=== PATIENT | male | born 1970 | race Caucasian/White ===

== ENCOUNTER → 2024-03-12 | Outpatient (CLI) | payer MEDICAID, SELFPAY ==
--- NOTE | 2024-03-12 16:15 | XR_ITS ---
Examination: MRI lumbar spine without contrast Date and time of exam: March 12, 2024 1708 hours INDICATIONS: Lifting injury 2010 with persistent low back pain numbness in the legs Technique: Multiple MRI axial and sagittal sections lumbar spine. Sagittal T2-weighted images, TR 3500, TE 118 T1 weighted transverse sections, TR 688 T8.5, T2-weighted sagittal sections T1 weighted sagittal sections TR 621, TE 30 T2 axial sections, TR 4, 190, TE 84. Findings: Adequate alignment lumbar vertebral bodies on the lateral view No lumbar fracture Diffuse lumbar disc desiccation Moderate disc narrowing posteriorly L5-S1 No spondylolisthesis L5-S1 2 mm central lumbar disc bulge contiguous with the S1 nerve roots L4-L5 no disc protrusion L3-L4 no disc protrusion L2-L3 no disc protrusion L1-2 no disc protrusion IMPRESSION: L5-S1 2 mm central lumbar disc bulge contiguous with the right and left S1 nerve roots
== END | disposition home or self-care (01) ==
LOC: SMRI 03-15 07:52
PROVIDERS: PCP Pediatrics; Referring Provider Orthopaedic Surgery; Visit Provider Orthopaedic Surgery
DX: M51.370 Other intervertebral disc degeneration, lumbosacral region with discogenic back pain only (principal)
CPT/HCPCS: 72148

== ENCOUNTER 2024-03-18 16:30 | Outpatient (RCR) | payer MEDICAID, SELFPAY ==
--- NOTE | 2024-02-23 15:10 | PT.OIERPT ---
PT OP Initial Eval Patient Information Outpatient Physical Therapy Treatment Date: 02/23/24 Visit Reasons: Lumbar region Medical Diagnosis: M51.36 Treatment Dx #1: LBP with radiculopathy Start of Care: 02/23/24 Date of Onset: 7 yrs ago Smoking Status Smoking Status: Never smoker Initial Assessment Subjective: Pt is 53 yr old syrian speaking male who reports long Hx of LBP and feet that go numb. 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 PMH: none reported Imaging: Xray in EMR Diffuse [id number] lumbar degenerative disc disease, most prominent L1-L2? Pt goal: less LBP Objective: Trunk ArOM: ? B SB 50% of normal with pain ? Extension: 20% with pain around L4-5, L5-S1 ? Flexion: 10 from floor with LBP ? B rotation: 60% with pain to the L ? TTP: moderate paraspinals L5-S1 ? Neuro: R SLR: positive Assessment: ? Pt presents with trunk flexion sensitivity and overlying myofascial pain ? and TTP around L5-S1 consistent with ? lower lumbar disc bulge(s) with radiculopathy. Pt requires skilled therapy in order to decrease ? pain and improve sitting/standing tolerance and has fair rehab potential. Eval ?followed by HEP printout. 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 Ind with HEP ? 2. Decreased lower paraspinal TTP from mod to min 3. Improved work tolerance to at least 90 minutes with <=3/10 LBP and no ?increase in LE ssx ? Treatment Plan ? 1. Manual therapy ? 2. Therex ? 3. Modalities as indicated, moist heat, ice, estim, mechanical traction Frequency and Duration: 1-2x a week for 8 Rx sessions plus evaluation Certification Dates: 02/23/24 to 05/21/24 Procedure Charges OP PT Eval Mod Complex 30 minutes: Yes
--- NOTE | 2024-03-02 17:35 | PTNOTE_ITS ---
PT Outpatient Daily Note OP Daily Note Outpatient Physical Therapy Treatment Date: 03/02/24 Visit Reasons: Lumbar region Subjective: The HEP exercises of prone lumbar extension have helped reduce LBP Objective: See F/S for therex MT: [facility] L/S x7' Assessment: Low tissue irritability with therex Plan: Continue per POC Length of Time (minutes) of Treatment: 30 Minutes Procedure Charges Therapeutic Exercise 30 minutes: Yes
--- NOTE | 2024-03-10 17:33 | PT.ODAYNRPT ---
PT Outpatient Daily Note OP Daily Note Outpatient Physical Therapy Treatment Date: 03/10/24 Visit Reasons: Lumbar region Subjective: The HEP exercises of prone lumbar extension have helped reduce LBP Objective: See F/S for therex Mechanical traction L/S x7' Assessment: Low tissue irritability with therex and prone extension Plan: Continue per POC Length of Time (minutes) of Treatment: 30 Minutes Procedure Charges Therapeutic Exercise 30 minutes: Yes
--- NOTE | 2024-03-18 19:23 | PT.ODAYNRPT ---
PT Outpatient Daily Note OP Daily Note Outpatient Physical Therapy Treatment Date: 03/18/24 Visit Reasons: Lumbar region Subjective: The LBP Objective: See F/S for therex Assessment: Low tissue irritability with therex and prone extension Plan: Continue per POC Length of Time (minutes) of Treatment: 30 Minutes Procedure Charges Therapeutic Exercise 30 minutes: Yes
== END 2024-03-19 23:59 | disposition home or self-care (01) ==
LOC: CPTX 16:30
PROVIDERS: PCP Orthopaedic Surgery; Referring Provider Orthopaedic Surgery; Visit Provider Orthopaedic Surgery
DX: M51.16 Intervertebral disc disorders with radiculopathy, lumbar region (principal)
CPT/HCPCS: 97110; 97162

== ENCOUNTER 2024-04-15 16:00 | Outpatient (RCR) | payer MEDICAID, SELFPAY ==
--- NOTE | 2024-03-23 18:14 | PT.ODAYNRPT ---
PT Outpatient Daily Note OP Daily Note Outpatient Physical Therapy Treatment Date: 03/23/24 Visit Reasons: Lumbar Region Subjective: The LB feels about the same since starting therapy Objective: See F/S for therex MT: [facility] L/S x7' Mech traction L/S at 40 lbs x7' Assessment: Low tissue irritability with therex and prone extension Plan: Continue per POC Length of Time (minutes) of Treatment: 30 Minutes Procedure Charges Therapeutic Exercise 30 minutes: Yes
--- NOTE | 2024-04-01 18:09 | PT.ODAYNRPT ---
PT Outpatient Daily Note OP Daily Note Outpatient Physical Therapy Treatment Date: 04/01/24 Visit Reasons: Lumbar Region Subjective: The LB feels about the same since starting therapy Objective: See F/S for therex MT: [facility] L/S x7' Assessment: Temporary relief of LBP since starting therapy Plan: Continue per POC Length of Time (minutes) of Treatment: 30 Minutes Procedure Charges Therapeutic Exercise 30 minutes: Yes
--- NOTE | 2024-04-08 17:37 | PTNOTE_ITS ---
PT Outpatient Daily Note OP Daily Note Outpatient Physical Therapy Treatment Date: 04/08/24 Visit Reasons: Lumbar Region Subjective: The LB feels about the same since starting therapy Objective: See F/S for therex MT: [facility] L/S x7' Assessment: Temporary relief of LBP since starting therapy Plan: Continue per POC Length of Time (minutes) of Treatment: 30 Minutes Procedure Charges Therapeutic Exercise 30 minutes: Yes
--- NOTE | 2024-04-13 16:34 | PT.ODAYNRPT ---
PT Outpatient Daily Note OP Daily Note Outpatient Physical Therapy Treatment Date: 04/13/24 Visit Reasons: Lumbar Region Subjective: The LB feels about the same since starting therapy Objective: See F/S for therex MT: [facility] L/S x7' Assessment: Temporary relief of LBP since starting therapy Plan: Reassess Length of Time (minutes) of Treatment: 30 Minutes Procedure Charges Therapeutic Exercise 30 minutes: Yes
--- NOTE | 2024-04-15 16:07 | PT.ODS1RPT ---
PT OP Progress/Discharge Note Date of Service: 04/15/24 Progress Note/DC Note Progress Note/Discharge Note: DC Note Patient Information Visit Reasons: Lumbar Region Service Continue Service or Discharge: Discharge Discharge Date: 04/15/24 Status Subjective: The LB feels about the same since starting therapy. Pain is variable and depends on activity. Objective: See F/S for therex Trunk AROM: FB: 8 from floor Extension: 50% TTP: min of L/S paraspinals Assessment: Pt has attended 09/24 Rx visits with temporary relief of LBP since starting therapy. Pt has improved work tolerance to 90 mins but pain is sometimes higher than the 3/10 goal. Pt has decreased lower paraspinal TTP from mod to min to meet that goal. He has improved trunk extension tolerance and relief in prone. Plan: D/C with HEP Procedure Charges Therapeutic Exercise 30 minutes: Yes
== END 2024-04-16 23:59 | disposition home or self-care (01) ==
LOC: CPTX 16:00
PROVIDERS: PCP Orthopaedic Surgery; Referring Provider Orthopaedic Surgery; Visit Provider Orthopaedic Surgery
DX: M54.16 Radiculopathy, lumbar region (principal)
CPT/HCPCS: 97110

== ENCOUNTER 2024-09-01 07:51 | Emergency (ER) | payer MEDICAID, SELFPAY ==
[2024-09-01 08:19] VITALS: BP 128/84; PULSE 66; RESP 18; TEMP 36.6; O2SAT 98; BMI 25.8
--- NOTE | 2024-09-01 08:26 | XR_ITS ---
Examination: Knee, right , 3 views Technique: Knee AP, lateral, oblique 3 views Date and time of exam: September 01, 2024 0839 hours INDICATIONS: Running this morning, patient heard a pop in the knee followed by pain FINDINGS: Mild narrowing medial joint space No fracture or dislocation Small to moderate knee effusion IMPRESSION: No fracture or dislocation
--- NOTE | 2024-09-01 09:06 | PD.EDLOWEX ---
Lower Extremity Injury RME/HPI General Stated Complaint: RIGHT KNEE PAIN X AM WHILE RUNNIG Time Seen by Provider: 09/01/24 08:25 Arrival date/time: 09/01/24 07:51 54-year-old male states that he was out running today and injured his right knee patient was able to ambulate but reports pain with movement Limitations: no limitations Related Data Previous Rx's ?Medication ?Instructions ?Recorded ibuprofen 800 mg tablet 800 mg PO TID PRN pain #30 tabs 09/01/24 Allergies Allergy/AdvReac Type Severity Reaction Status Date / Time NKA* Allergy Uncoded 09/01/24 07:56 Review of Systems Review of Systems Systems Reviewed: All systems reviewed, normal except as documented Constitutional Constitutional: Reports system reviewed and no additional complaints, except as documented, Denies fever(s) and Denies headache(s) Eyes Eyes: Reports system reviewed and no additional complaints, except as documented and Denies blurry vision ENT Ears, Nose, Mouth, and Throat: Reports system reviewed and no additional complaints, except as documented, Denies headache(s), Denies nasal congestion and Denies nasal discharge Cardiovascular Cardiovascular: Reports system reviewed and no additional complaints, except as documented, Denies chest pain and Denies dyspnea Respiratory Respiratory: Reports system reviewed and no additional complaints, except as documented, Denies chest congestion, Denies cough and Denies dyspnea Gastrointestinal Gastrointestinal: Reports system reviewed and no additional complaints, except as documented and Denies abdominal pain Musculoskeletal Musculoskeletal: Reports system reviewed and no additional complaints, except as documented, Reports abnormal gait, Reports arthralgias, Denies deformity, Denies numbness, Reports stiffness and Denies tingling Integumentary/Breasts Skin/Breast: Reports system reviewed and no additional complaints, except as documented and Denies rash Neurologic Neurologic: Reports system reviewed and no additional complaints, except as documented, Reports as per HPI, Reports abnormal gait, Denies headache(s), Denies numbness and Denies tingling Past Medical History Social History SMOKING STATUS: Never smoker ED Exam General Limitations: Present no limitations General appearance: Present alert and in no apparent distress Head Head exam: Present atraumatic Eye Eye exam: Present normal appearance, PERRL and EOMI ENT ENT exam: Present normal exam, normal oropharynx and mucous membranes moist Neck Neck exam: Present normal inspection, full ROM and trachea midline Chest Chest inspection: Present normal inspection and symmetric chest wall rise Respiratory Respiratory exam: Present normal lung sounds bilaterally Cardiovascular Cardiovascular exam: Present regular rate, normal rhythm and normal heart sounds Abdominal Exam Abdominal exam: Present soft and normal bowel sounds Extremities Exam Extremities exam: Present full ROM, tenderness, normal capillary refill and joint swelling; Absent pedal edema or calf tenderness Back Exam Back exam: Present normal inspection and full ROM Neurological Exam Neurological exam: Present alert, oriented X3 and CN II-XII intact Psychiatric Psychiatric exam: Present normal affect and normal mood Skin Skin exam: Present warm, dry, intact and normal color Course Quality Measures none Orders Category Date Time Status XR knee RT 3V Stat Exams 09/01/24 08:26 Completed Ketorolac Inj [Toradol Inj] Med 09/01/24 08:39 Discontinued 30 mg IM X1 ONE Vital Signs Vital signs: Vital Signs Temperature 98 F 09/01/24 08:19 Pulse Rate 66 09/01/24 08:19 Respiratory Rate 18 09/01/24 08:19 Blood Pressure 128/84 09/01/24 08:19 Pulse Oximetry (%) 98 09/01/24 08:19 Oxygen Delivery Method Room Air 09/01/24 08:19 O2 saturation 98% room air within normal limits Extremity Injury, Lower MDM Narrative MDM Narrative:: 54-year-old male states that he was out running today and injured his right knee patient was able to ambulate but reports pain with movement On exam patient has mild tenderness to the right knee patient does have full range of motion but reports pain with movement X-ray of the right knee obtained no acute fracture dislocation noted Patient given Toradol for pain Patient has his own crutches and a knee brace Explained to patient that if his symptoms persist or worsen he will have to have an outpatient MRI for further evaluation Patient data External records reviewed:: [facility] previous records Clinical information provided by:: patient Social determinants that could affect healthcare access:: none Patient has the following chronic illnesses:: None How is presenting disease/condition affected by chronic disease/condition?: no chronic disease Evaluation data The following diagnostics were reviewed and interpreted by me:: radiology exam(s) Lab and/or radiology exams considered but not ordered:: Radiology obtain Interpretation Summary: Reviewed by me Medications / Prescriptions Medications or Prescriptions considered but not ordered:: Given Medication administrations:: Medication Administration History Discontinued Medications Ketorolac Tromethamine (Ketorolac Inj 30 Mg/Ml Vial) 30 mg IM X1 ONE Stop: 09/01/24 08:40 Last Admin: 09/01/24 09:13 Dose: 30 mg Documented By: Given Consultations Consultation(s) initiated? (list below): No Diagnosis Extremity Injury, Lower Differential Diagnosis: acute internal derangement of knee and other Most likely diagnosis given after review of the tests above:: Pain right knee Admission Indicated Admission indicated?: not indicated Admission Request Was there a request for admission?: No Disposition Plan Disposition Plan: Discharge Discharge Attestation Discharge Attestation: The patient and all family members were given an opportunity to ask questions and understood the discharge instructions. Discharge instructions specifically effects, indications for sooner follow up or return to the emergency department, and the expected course of current diagnosis. Patient condition: Stable Discharge Plan Plan Patient Disposition: HOME (Self Care) Discharge Disposition comment: Stable Prescriptions/Referrals Prescriptions/Med Rec: New ibuprofen 800 mg tablet 800 mg PO TID PRN (Reason: pain) Qty: 30 0RF Referrals: Justin([facility])Josh NP [Primary Care Provider] - In 1 week Problem List Clinical Impression: Right knee sprain Patient/Caregiver Discharge Instructions Education Materials: ED Knee Sprain Additional Instructions: Please follow up with your primary care doctor in the next 24-48hrs for any worsening symptoms return here immediately If your pain persist you will have to have an MRI for further evaluation Print Language: Frisian Stand Alone Forms: Linda Award Info., Work/School Release, Patient Portal Info Letter CHARLOTTE/ARELI Supervising Physician CHARLOTTE/ARELI Supervising Physician: Dr. Oates
[2024-09-01] MEDS: KETOROLAC INJ 30 MG/ML VIAL IM (09:13)
== END 2024-09-01 09:30 | disposition home or self-care (01) ==
PROVIDERS: Emergency Provider Nurse Practitioner Primary Care; PCP Nurse Practitioner Family
DX: S83.91XA Sprain of unspecified site of right knee, initial encounter (principal); X58.XXXA Exposure to other specified factors, initial encounter; Y93.02 Activity, running
CPT/HCPCS: 73562; 96372; 99283; J1885